=== PATIENT | female | born 1930 | race Caucasian/White ===

== ENCOUNTER 2017-05-15 12:21 | Inpatient (IN) | payer OTHER ==
--- NOTE | 2017-05-15 12:47 | CPEKG ---
Heart Rate: 88 RR Interval: 682 QRSD Interval: 100 QT Interval: 396 QTC Interval: 480 QRS Gillett: 122 T Wave Gillett: -60 EKG Severity - ABNORMAL ECG - EKG Impression: ATRIAL FIBRILLATION, V-RATE 68-99 EKG Impression: RVH WITH SECONDARY REPOLARIZATION ABNORMALITY Electronically Signed By: Graciela Jara 17-May-2017 15:16:12
[2017-05-15 12:56] LABS: PLATELET COUNT 140 10^3/uL (150-400)
[2017-05-15 13:06] LABS: INR 1.7 (0.83-1.16); PROTIME(PATIENT) 20.1 SEC (12.0-15.0)
--- NOTE | 2017-05-15 13:08 | EDPHY ---
HPI/HX/ROS/PE/MDM Narrative: CHIEF COMPLAINT: N/V, cough, fever HPI: The patient is an anticoagulated 86 y/o female with atrial fibrillation and pulmonary hypertension arriving with her at the referral of her wine bottle inspector for possible infectious process. She was seen at [facility] for a routine follow up appointment and her wine bottle inspector noted her recent pulmonary pressures and BNP were elevated, but due to her ill appearance he referred her to the ED for hospitalization. The patient complains of weakness, nausea, vomiting, muscle aches, subjective fever, and a cough that began yesterday afternoon. She denies chest pain, abdominal pain, dyspnea, abdominal pain, diarrhea, recent trauma. She thinks her leg edema has been slightly worse than normal. REVIEW OF SYSTEMS: Aside from elements discussed in the HPI, a comprehensive 10-point review of systems was reviewed and is negative. PMH: Atrial fibrillation - Warfarin, breast cancer, depression, hypertension, pulmonary hypertension, hyperlipidemia, hypothyroidism, osteopenia, severe tricuspid regurgitation PSH: Cholecystectomy, Mohs surgery, tonsillectomy, vein stripping Prior medical records reviewed including [facility] note regarding today's symptoms 05/15/17 in [place]. SOCIAL HISTORY: , at bedside. Retired. PHYSICAL EXAM: General:Patient is alert, in no acute distress. ENT:Eyes are normal to inspection. ENT inspection normal. Neck: Normal inspection. Full range of motion. Respiratory:No respiratory distress. Breath sounds normal bilaterally. Cardiovascular: Irregularly irregular rate and rhythm. Strong peripheral pulses. Normal cap refill. Abdomen:The abdomen is nontender to palpation. There are no peritoneal signs. Back: Normal to inspection. No tenderness to palpation. Skin: Normal color. No rash. Warm and dry. Extremities: 2+ pedal edema with chronic changes to both lower extremities. Full range of motion. Neuro: Oriented x3. Normal motor function. Normal sensory function. ED Course: This is an 86 y/o female with atrial fibrillation and pulmonary hypertension who presents with a 1-day history of nausea, vomiting, subjective fever, cough, and myalgias and was referred here by her wine bottle inspector, Dr. Parisi, for possible admission. She is generally well-appearing here with some chronic pedal edema on exam. No respiratory distress and she is afebrile. Plan for IV, labs, EKG, chest x-ray. The 12 lead EKG was interpreted by myself. Atrial fibrillation. T wave changes from EKG in 2013. See hard copy and/or "tracemaster" electronic copy for interpretation. Will attempt to get more recent EKG from [facility]. Chest x-ray: Spoke with hospitalist service. Dr. Hanson accepts admission. MDM: This patient was sent from wine bottle inspector office for admission to the hospital secondary to febrile illness, vomiting in setting of pulmonary HTN and CHF. I see no signs of ACS, PNA, severe sepsis or ARF. - Data Points Imaging Results: Imaging Impressions Chest X-Ray 05/15/17 12:40 Impression: 1. Moderate cardiomegaly without consolidative edema. 2. Chronic obstructive airways disease. Superimposed mild interstitial edema is possible. 3. Vertebral plana at T12, age indeterminate but new since 2012. Stable minimally increased moderate compression fracture T10. Imaging: I viewed and interpreted images myself Laboratory Results: Laboratory Results 05/15/17 12:47 05/15/17 12:47 05/15/17 05/15/17 05/15/17 13:20 12:47 12:47 WBC RBC Hgb Hct MCV MCH MCHC RDW Plt Count MPV Neut % (Auto) Lymph % (Auto) Dickenson % (Auto) Eos % (Auto) Baso % (Auto) Nucleat RBC Rel Count Absolute Neuts (auto) Absolute Lymphs (auto) Absolute Monos (auto) Absolute Eos (auto) Absolute Basos (auto) Absolute Nucleated RBC Immature Gran % Immature Gran # PT 20.1 SEC H SEC (12.0-15.0) INR 1.70 H (0.83-1.16) APTT 29.2 SEC SEC (23.0-38.0) Sodium 135 mEq/L mEq/L (135-145) Potassium 4.8 mEq/L mEq/L (3.5-5.2) Chloride 95 mEq/L L mEq/L (97-110) Carbon Dioxide 28 mEq/l mEq/l (22-31) Anion Gap 12 mEq/L mEq/L (8-16) BUN 24 mg/dL H mg/dL (7-23) Creatinine 1.3 mg/dL H mg/dL (0.6-1.0) Estimated GFR 39 Glucose 153 mg/dL H mg/dL (70-100) Calcium 9.2 mg/dL mg/dL (8.5-10.4) Troponin I 0.026 ng/mL ng/mL (0.000-0.034) NT-Pro-B Natriuret Pep 7250 pg/mL H pg/mL (0-450) Nasal Influenza A PCR Pending Nasal Influenza B PCR Pending 05/15/17 12:47 WBC 7.81 10^3/uL 10^3/uL (3.80-9.50) RBC 5.68 10^6/uL H 10^6/uL (4.18-5.33) Hgb 16.6 g/dL H g/dL (12.6-16.3) Hct 51.8 % H % (38.0-47.0) MCV 91.2 fL fL (81.5-99.8) MCH 29.2 pg pg (27.9-34.1) MCHC 32.0 g/dL L g/dL (32.4-36.7) RDW 15.2 % % (11.5-15.2) Plt Count 140 10^3/uL L 10^3/uL (150-400) MPV 11.9 fL H fL (8.7-11.7) Neut % (Auto) 75.9 % H % (39.3-74.2) Lymph % (Auto) 7.6 % L % (15.0-45.0) Dickenson % (Auto) 15.5 % H % (4.5-13.0) Eos % (Auto) 0.1 % L % (0.6-7.6) Baso % (Auto) 0.4 % % (0.3-1.7) Nucleat RBC Rel Count 0.0 % % (0.0-0.2) Absolute Neuts (auto) 5.93 10^3/uL 10^3/uL (1.70-6.50) Absolute Lymphs (auto) 0.59 10^3/uL L 10^3/uL (1.00-3.00) Absolute Monos (auto) 1.21 10^3/uL H 10^3/uL (0.30-0.80) Absolute Eos (auto) 0.01 10^3/uL L 10^3/uL (0.03-0.40) Absolute Basos (auto) 0.03 10^3/uL 10^3/uL (0.02-0.10) Absolute Nucleated RBC 0.00 10^3/uL 10^3/uL (0-0.01) Immature Gran % 0.5 % % (0.0-1.1) Immature Gran # 0.04 10^3/uL 10^3/uL (0.00-0.10) PT INR APTT Sodium Potassium Chloride Carbon Dioxide Anion Gap BUN Creatinine Estimated GFR Glucose Calcium Troponin I NT-Pro-B Natriuret Pep Nasal Influenza A PCR Nasal Influenza B PCR General Time Seen by Provider: 05/15/17 12:39 Initial Vital Signs: Initial Vital Signs Temperature (C) 36.8 C 05/15/17 12:30 Heart Rate 90 05/15/17 12:30 Respiratory Rate 18 05/15/17 12:30 Blood Pressure 110/75 05/15/17 12:30 O2 Sat (%) 90 L 05/15/17 12:30 O2 Delivery Mode Nasal Cannula O2 (L/minute) 3 Allergies/Adverse Reactions: codeine [Codeine] Allergy (Severe, Verified 12/14/10 11:14) loratadine [From Claritin] Allergy (Verified 12/14/10 11:14) Home Medications: Medication Instructions Recorded metFORMIN HCL [Glucophage 500 mg 500 mg PO BIDMEAL 04/08/11 (*)] Atorvastatin Calcium [Lipitor 20 20 mg PO HS 05/15/17 mg (*)] C/E/Zn/Cu/OM3/DHA/EPA/LUT/ZEAX 1 each PO DAILY 05/15/17 [Preservision Areds 2 Softgel] Calcium Carbonate [Oyster Shell 500 mg PO DAILY 05/15/17 Calcium 500 mg (*)] Carboxymethylcellulose Sodium 1 drop EACHEYE DAILY 05/15/17 [Thera Tears] Cholecalciferol Vit D3 [Vitamin D3 1,000 units PO DAILY 05/15/17 (*)] Furosemide [Lasix 20 MG (*)] 20 mg PO DAILY 05/15/17 Metoprolol Tartrate [Lopressor 100 100 mg PO DAILY 05/15/17 mg (*)] Metoprolol Tartrate [Lopressor 50 50 mg PO DAILY PRN 05/15/17 mg (*)] Metoprolol Tartrate [Lopressor 50 50 mg PO HS 05/15/17 mg (*)] [place]-3 Fatty Acids [Fish Oil 1000 1,000 mg PO DAILY 05/15/17 mg (*)] Sodium Cl Nasal [[place] Skillman (*)] 1 spray NS DAILY PRN 05/15/17 Spironolactone [Aldactone 25 MG 25 mg PO DAILY 05/15/17 (*)] Venlafaxine Xr [Effexor Xr 37.5MG 37.5 mg PO HS 05/15/17 (*)] Warfarin Sodium [Coumadin 5MG (*)] 5 mg PO DAILY 05/15/17 Departure - Departure Disposition: [facility] Inpatient Acute Report Scribed for: Man Holly Report Scribed by: Dyana Mcallister Date of Report: 05/15/17 Time of Report: 13:08 Physician Review and Approval Statement: Portions of this note were transcribed by an ED scribe. I personally performed the history, physical exam, and medical decision making; and confirm the accuracy of the information in the transcribed note.
[2017-05-15] MEDS ORDERED: ACETAMINOPHEN 325 MG TAB PO PRN (16:16)
[2017-05-15] MEDS ORDERED: ONDANSETRON DISINTEGRATING 4 MG TAB PO PRN (16:16)
[2017-05-15] MEDS ORDERED: ONDANSETRON 4 MG/2 ML VIAL IVP PRN (16:16)
[2017-05-15] MEDS ORDERED: METOPROLOL TARTRATE 50 MG TAB PO PRN (16:18)
[2017-05-15] MEDS ORDERED: SODIUM CL NASAL 45 ML BTL NS PRN (16:18)
--- NOTE | 2017-05-15 16:53 | GHP ---
[f rep st] HISTORY AND PHYSICAL DATE OF ADMISSION: 05/15/2017 HISTORY OF PRESENT ILLNESS: The patient is an 86-year-old female admitted to the hospital on 018, from Cardiology Clinic. She has a history of severe pulmonary hypertension, followed by Dr. Crystla Tran at [facility]. She was in Dr. Sarwat Parisi's office for a scheduled followup. Sh fernando notes that she has had some nausea and vomiting. She had 3 episodes of emesis yesterday, 2 episode s today. She ate some recent leftovers but describes them as good and not bad. She has had no diarr hea. Her has not been sick recently, although he had a viral-type illness about a couple of months ago. She did get a flu shot this year. She notes that she did not take her diuretics today. She took them yesterday. She has not had orthopnea, PND, or lower extremity edema. I reviewed the clinic note from Dr. Tran who noted 3+ edema at that time. I discussed the case Dr. Sarwat Parisi w ho felt that her pulmonary hypertension was not contributing to her current cause. She has not had fever, chills. She has no abdominal pain. REVIEW OF SYSTEMS: Complete 10-point review of systems conducted, negative as noted in the HPI. PAST MEDICAL HISTORY: 1. Pulmonary hypertension secondary to diastolic dysfunction or CHF with preserved EF. 2. Atrial fibrillation, on chronic anticoagulation. 3. Type 2 diabetes. 4. Hyperlipidemia. 5. Hypothyroidism. 6. Breast cancer status post lumpectomy. PAST SURGICAL HISTORY: She also has a history of cholecystectomy. ALLERGIES: Codeine and loratadine. HOME MEDICATIONS: Atorvastatin, PreserVision, calcium carbonate, TheraTears, vitamin D3, furosemide, metformin, metoprolol, fish oil, sodium chloride, spironolactone, venlafaxine, warfarin. SOCIAL HISTORY: Lives with her . No alcohol. No tobacco. FAMILY HISTORY: Parents . PHYSICAL EXAMINATION: VITAL SIGNS: Temp 36.8, blood pressure 110/73, pulse 90, breathing 18 times a minute, 90% on 3 L. GENERAL: No acute distress. HEENT: Sclerae anicteric. Oropharynx clear. Mu cous membranes moist. NECK: Supple without lymphadenopathy. There is no JVD. LUNGS: Clear to aus cultation bilaterally, HEART: S1, loud S2 and thick split S2. ABDOMEN: Soft, nontender, nondistend ed. LOWER EXTREMITIES: No edema. Calves nontender. SKIN: Without rash. NEUROLOGIC: Nonfocal. LABORATORY DATA: White count 7.8, hematocrit is 51.8, which is greater than her baseline of about 40 , platelets are 140,000. INR is 1.7. Sodium 135, potassium 4.8, chloride 95, bicarb 28, BUN 24, cre atinine 1.3. These values are baseline. Her glucose is 153. Troponin 0.026. BNP is 7250 which is an elevated level for her. IMAGING: Chest x-ray interpreted by me shows no acute cardiopulmonary disease. EKG interpreted by m e shows AFib at 88 with evidence of right ventricular hypertrophy. There are T-wave inversions acros s the precordium. These are not new findings. I discussed case with Dr. Sarwat Parisi and Dr. Man Holly. ASSESSMENT AND PLAN: This is an 86-year-old female with pulmonary hypertension who presents with raven sea and vomiting. 1. Nausea and vomiting. I think this is secondary to a viral illness. She is influenza negative. I am going to go ahead and start her on a clear liquid diet. She has a benign abdominal exam. 2. Pulmonary hypertension. We will continue her medications. I think the patient is euvolemic to d ry. Will restart her diuretics. I will hold on IV fluids but will follow her renal function in the morning. 3. Atrial fibrillation. She is rate controlled on metoprolol. Will continue her anticoagulation. 4. Prophylaxis. She is therapeutically anticoagulated. DISPOSITION: Observation status. Anticipate discharge 05/16/2017. /[id number]/MODL
[2017-05-15] MEDS: metFORMIN HCL 500 MG TAB PO SCH (17:54)
[2017-05-15] MEDS: METOPROLOL TARTRATE 50 MG TAB PO SCH (19:58)
[2017-05-15] MEDS: ATORVASTATIN CALCIUM 20 MG TAB PO SCH (19:59)
[2017-05-15] MEDS: TEARS/DEXTRAN 70/HYPROMELLOSE 15 ML OPHT.BTL EACHEYE SCH (20:01)
[2017-05-15] MEDS: VENLAFAXINE XR 37.5 MG CAP PO SCH (22:19)
[2017-05-16 04:26] LABS: INR 1.71 (0.83-1.16); PROTIME(PATIENT) 20.2 SEC (12.0-15.0)
[2017-05-16] MEDS ORDERED: CARBOXYMETHYLCELLULOSE SODIUM EACHEYE SCH (09:00)
[2017-05-16] MEDS: OMEGA-3 FATTY ACIDS 1,000 MG CAP PO SCH (09:47)
[2017-05-16] MEDS: metFORMIN HCL 500 MG TAB PO SCH ×2 (09:47→18:21)
[2017-05-16] MEDS: PRESERVISION AREDS2 FORMULA EYE VIT 1 EACH PO SCH (09:47)
[2017-05-16] MEDS: SPIRONOLACTONE 25 MG TAB PO SCH ×2 (09:48→12:22)
[2017-05-16] MEDS: CALCIUM CARBONATE 500 MG TAB PO SCH (09:48)
[2017-05-16] MEDS: CHOLECALCIFEROL VIT D3 1,000 UNITS TAB PO SCH (09:48)
[2017-05-16] MEDS: WARFARIN SODIUM 5 MG TAB PO SCH (09:48)
[2017-05-16] MEDS: FUROSEMIDE 20 MG TAB PO SCH (09:48)
[2017-05-16] MEDS: METOPROLOL TARTRATE 100 MG TAB PO SCH (09:52)
[2017-05-16] MEDS: ENOXAPARIN 40 MG/0.4 ML SYR SC SCH (09:56)
--- NOTE | 2017-05-16 13:10 | HOSPPROG ---
Hospitalist Progress Note Assessment/Plan: * Fever - suspect viral -BC pending * Gastroenteritis - concern for ingestion of spoiled chicken salad -continue supportive care * Pulmonary HTN with chronic respiratory failure - 4L baseline -continue lasix, spironolactone * Afib -rate control - metoprolol -warfarin subtherapeutic - may need increased dose * DM II -metformin - watch with CKD * CKD - baseline creatinine 1.3-1.5 Advance diet. Watch for recurrence of fever. Still weak and feeling poorly. Hopefully home tomorrow if improved. Subjective: Feels weak, high fever last night. N/V resolved, wants to eat. Too weak to go home today, still feels quite ill. Objective: Vital Signs Temp Pulse Resp BP Pulse Ox 36.9 C 89 16 108/68 91 L 05/16/17 07:13 05/16/17 11:37 05/16/17 11:37 05/16/17 11:37 05/16/17 11:37 Laboratory Results 05/16/17 04:00 05/15/17 05/16/17 05/17/17 05:59 05:59 05:59 Intake Total 0 500 Balance 0 500 PT 20.2 SEC (12.0-15.0) H 05/16/17 04:00 INR 1.71 (0.83-1.16) H 05/16/17 04:00 EKG viewed, my personal recommendation is - ant TWI CXR - negative - Physical Exam Constitutional: no apparent distress, appears nourished, not in pain Cardiovascular: regular rate and rhythym, no murmur, rub, or gallop Respiratory: no respiratory distress, no rales or rhonchi, clear to auscultation Gastrointestinal: normoactive bowel sounds, soft, non-tender abdomen, no palpable masses Skin: no rashes or abrasions, no fluctuance, no induration Neurologic: AAOx3, sensation intact bilaterally Psychiatric: interacting appropriately, not anxious, not encephalopathic, thought process linear ICD10 Worksheet Patient Problems: Problems Problem Status Onset Pulmonary hypertension Acute - ICD10 Problem Qualifiers (1) Pulmonary hypertension
[2017-05-16] MEDS ORDERED: WARFARIN SODIUM 2.5 MG TAB PO ONE ×2 (14:00→16:45)
--- NOTE | 2017-05-16 14:06 | PDMN ---
Medical Necessity Medical necessity: Patient meets inpatient criteria per physician note and MCG M -170 Gastroenteritis (spiked temp to 102.9 overnight with tachycardia of 112 after rehydration; continues to require additional supplemental O2 (5 LPM/ baseline 4 LPM O2) to maintain O2 sat > 90%; anticipated LOS > 2 midnights for ongoing supportive care, additional supplemental O2, tolerance of progression of diet.)
--- NOTE | 2017-05-16 14:10 | ASMTCASEMG ---
Living Arrangements What is your living Answers: With Spouse arrangement? Who do you live with? Type Of Residence What kind of residence do Answers: House you live in? Discharge Plan Comments Coordination Status Comments Notes: Pts case discussed in tx rounds this AM. Pt is a 86 y/o female admitted for vomiting and pulm HTN. PT is recommending home independent. Pt will most likely not have any d/c needs. CM available for changes. Plan: Independent Date Signed: 05/16/2017 02:09 PM Electronically Signed By:KATHLEEN Ricks
[2017-05-16] MEDS: ATORVASTATIN CALCIUM 20 MG TAB PO SCH (21:37)
[2017-05-16] MEDS: VENLAFAXINE XR 37.5 MG CAP PO SCH (21:37)
[2017-05-16] MEDS: METOPROLOL TARTRATE 50 MG TAB PO SCH (21:38)
[2017-05-17 04:02] LABS: INR 1.78 (0.83-1.16); PROTIME(PATIENT) 20.8 SEC (12.0-15.0)
[2017-05-17 04:09] LABS: CREATINE KINASE 117 IU/L (0-156)
[2017-05-17] MEDS: metFORMIN HCL 500 MG TAB PO SCH (08:09)
[2017-05-17] MEDS: FUROSEMIDE 20 MG TAB PO SCH (08:09)
[2017-05-17] MEDS: SPIRONOLACTONE 25 MG TAB PO SCH (08:09)
[2017-05-17] MEDS: CHOLECALCIFEROL VIT D3 1,000 UNITS TAB PO SCH (08:09)
[2017-05-17] MEDS: PRESERVISION AREDS2 FORMULA EYE VIT 1 EACH PO SCH (08:09)
[2017-05-17] MEDS: METOPROLOL TARTRATE 100 MG TAB PO SCH (08:09)
[2017-05-17] MEDS: ENOXAPARIN 40 MG/0.4 ML SYR SC SCH (08:10)
[2017-05-17] MEDS: OMEGA-3 FATTY ACIDS 1,000 MG CAP PO SCH (08:10)
[2017-05-17] MEDS: WARFARIN SODIUM 5 MG TAB PO SCH (08:10)
[2017-05-17] MEDS: CALCIUM CARBONATE 500 MG TAB PO SCH (08:10)
[2017-05-17] MEDS: TEARS/DEXTRAN 70/HYPROMELLOSE 15 ML OPHT.BTL EACHEYE SCH (08:11)
[2017-05-17 08:19] VITALS: BP 91/63
--- NOTE | 2017-05-17 15:01 | GDS ---
[f rep st] DISCHARGE SUMMARY DISCHARGE DIAGNOSES: 1. Acute viral infection, PCR positive. Human metapneumovirus. 2. Pulmonary hypertension with chronic respiratory failure, 4 L baseline. 3. Obstructive sleep apnea. 4. Atrial fibrillation. 5. Diabetes, type 2. 6. Chronic kidney disease. Baseline creatinine 1.3-1.5. HISTORY: The patient is an 86-year-old female who presented after having profuse vomiting. She was admitted to the hospital under observation. Initially, there was some concern for food poisoning. T hat night, she spiked a high fever. Blood cultures remain negative. Viral PCR was sent and was posi tive for human metapneumovirus. The viral infection subsequently settled into her chest, and she dev eloped chest congestion. I think her entire presenting scenario is consistent with a human metapneum ovirus infection. She has not received antibiotics, and I think just needs ongoing supportive care u le discharge. She is at her baseline oxygen requirement and, other than a bronchitic cough, feels w ell to go home. She can use expectorants as needed OTC. DISCHARGE MEDICATIONS: Please see computer record for full detailed list. There are no new medicati ons given at time of hospital discharge. ADDITIONAL DISCHARGE INSTRUCTIONS: 1. OTC guaifenesin/Mucinex can be used as expectorant if needed. 2. Ongoing supportive care. Greater than 30 minutes' time was spent arranging this discharge. Patient was seen and examined by charlene king on day of discharge. /[id number]/MODL
--- NOTE | 2017-05-17 15:38 | ASDISCHSUM ---
Discharge Information Plan Status:Home with No Needs Medically Cleared to Leave: Discharge Date:05/17/2017 01:25 PM CM D/C Disposition:Home, Routine, Self-Care ADT D/C Disposition:Home, Routine, Self-Care Projected Discharge Date:05/17/2017 01:25 PM Transportation at D/C: Discharge Delay Reason: Follow-Up Date:05/17/2017 01:25 PM Discharge Slot: Final Diagnosis: Placement Information Patient Contact Information Contact Name:HAYDENCARADEEL Relationship: Address:[address] [place] Work Phone: City:[place] Alternate Phone: [facility]/Zip Code:[place] [address] Email: Financial Information Financial Class:Medicare Advantage Plans Primary Plan Desc:[facility] ADVANTAGE PLANS Primary Plan Number:[id number] Secondary Plan Desc: Secondary Plan Number: Assessment Information [facility] Initial CM Assessment Living Arrangements What is your living Answers: With Spouse arrangement? Who do you live with? Type Of Residence What kind of residence do Answers: House you live in? Discharge Plan Comments Coordination Status Comments Notes: Pts case discussed in tx rounds this AM. Pt is a 86 y/o female admitted for vomiting and pulm HTN. PT is recommending home independent. Pt will most likely not have any d/c needs. CM available for changes. Plan: Independent Date Signed: 05/16/2017 02:09 PM Electronically Signed By:KATHLEEN Ricks Intervention Information Intervention Type:*DERIAN-Signed Date of Service:05/16/2017 11:32 AM Patient Type:Observation Staff Member:Crystal Nicholson Hours: Discipline: Severity: Comment:
--- NOTE | 2017-05-17 15:38 | ASMTCMCOM ---
CM Note CM Note Notes: Pt. d/c'ed independently today. Date Signed: 05/17/2017 03:38 PM Electronically Signed By:Nohelia Gordon LCSW
== END 2017-05-17 13:25 | disposition home or self-care (01) | DRG 206 ==
LOC: F2W 16:00 → OBSVTOIN 05-16 13:01
PROVIDERS: ADMIT Internal Medicine; ATTEND Internal Medicine
DX: J98.8 Other specified respiratory disorders (principal); B97.81 Human metapneumovirus as the cause of diseases classified elsewhere; I27.20 Pulmonary hypertension, unspecified; J96.10 Chronic respiratory failure, unspecified whether with hypoxia or hypercapnia; G47.33 Obstructive sleep apnea (adult) (pediatric); I48.91 Unspecified atrial fibrillation; E11.22 Type 2 diabetes mellitus with diabetic chronic kidney disease; N18.9 Chronic kidney disease, unspecified; I12.9 Hypertensive chronic kidney disease with stage 1 through stage 4 chronic kidney disease, or unspecified chronic kidney disease; E78.5 Hyperlipidemia, unspecified; F32.9 Major depressive disorder, single episode, unspecified; I07.1 Rheumatic tricuspid insufficiency; E03.9 Hypothyroidism, unspecified; Z79.01 Long term (current) use of anticoagulants; Z85.3 Personal history of malignant neoplasm of breast; Z99.81 Dependence on supplemental oxygen
CPT/HCPCS: 97116-GP; 97161-GP; 97530-GP; G0378; G8978-GP-CJ; G8979-GP-CI; G8980-GP-CI; J1650; J2405